=== PATIENT | female | born 1945 | race Caucasian/White ===

== ENCOUNTER 2021-05-03 00:30 | Day surgery (SDC) | payer MEDICARE, SELFPAY ==
[2021-04-26 12:56] VITALS: BMI 33.7
[2021-05-03 09:12] VITALS: BP 146/80; PULSE 81; RESP 18; TEMP 36.3; O2SAT 98; BMI 34.3
[2021-05-03] MEDS: LACTATED RINGERS 1,000 ML 150 ML IV CONT (09:23)
--- NOTE | 2021-05-03 09:36 | WPDGICN ---
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 This appears most consistent with globus phenomenon. Recent ENT evaluation suggested she may have underlying acid reflux because of irritation in her throat. Agree with trial of omeprazole 20mg p.o. daily for several months. Alternatively she may benefit from a trial of Elavil 10-25 mg at bedtime for 1 month. Further recommendations will be given after endoscopy. GI Consult Note Consult date/time: 05/03/21 09:36 HPI: Padmini Gary is a 75 year old female Presents for EGD. Patient reports the sensation of a pill being stuck in her throat. She states this has been present since May of 2020. She denies any difficulty swallowing. She has a past history of heartburn intermittently. She recently saw an Ear Nose and Throat doctor in over the last 2-3 weeks been on omeprazole 20mg p.o. daily. This has made no change in this throat sensation. She is referred today for EGD. Previous colonoscopy 2018 was unremarkable for screening purposes. Family history is noncontributory. Review of Systems Review of Systems: All systems reviewed & are unremarkable except as noted in HPI and below PMFSH Social History Social History Living arrangements: with family Meds Home Medications and Allergies Home Medications Medication Instructions Recorded Confirmed Type ezetimibe 10 mg PO DAILY 04/26/21 04/26/21 History tamoxifen 200 mg PO DAILY 04/26/21 04/26/21 History Allergies Allergy/AdvReac Type Severity Reaction Status Date / Time No Known Allergies Allergy Verified 05/03/21 09:11 Vital Signs Vital Signs - 24 hr 05/03/21 09:12 Temperature 97.3 F L Pulse Rate 81 Respiratory Rate 18 Blood Pressure 146/80 H Pulse Oximetry 98 Exam Narrative: His feels patient to be alert. Vital signs stable. HEENT exam is unremarkable. Patient is anicteric. Lungs are clear to auscultation and percussion. Heart is without murmur or extra sounds. Abdominal exam bowel sounds present soft nontender with no hepatosplenomegaly.
--- NOTE | 2021-05-03 09:51 | WPDANESEPPF ---
Anes - Initial Pre Proc Eval Procedure: Operation Date: 05/03/21 10:30 Proposed Procedures p Esophagogastroduodenoscopy - Ruben Sorensen MD Date/Time: 05/03/21 09:51 Surgeon: Ruben Sorensen MD Pre Op Diagnosis: GERD Patient Data Age: 75 Gender: F Height: 1.6 m Weight: 88 kg Last Vital Signs Temp 97.3 F L 05/03/21 09:12 Pulse 81 05/03/21 09:12 Resp 18 05/03/21 09:12 BP 146/80 H 05/03/21 09:12 Pulse Ox 98 05/03/21 09:12 Allergies Allergy/AdvReac Type Severity Reaction Status Date / Time No Known Allergies Allergy Verified 05/03/21 09:11 Home Medications Medication Instructions Recorded Confirmed Type ezetimibe 10 mg PO DAILY 04/26/21 04/26/21 History tamoxifen 200 mg PO DAILY 04/26/21 04/26/21 History Patient hx anesthesia problems: none Family hx anesthesia problems: none Results Review: All pre-operative results and documents have been reviewed as part of the pre-operative evaluation. COUNTS INCLUDE 234 BEDS AT THE [facility] Past Medical History Medical History (Updated 05/03/21 @ 09:46 by Sarmad Babin MD) Hyperlipidemia Social History Social History Living arrangements: with family Anes - Eval Final PreProcedure Day of Procedure 05/03/21 09:51 Patient weight: obese Heart: regular rate and rhythm Lungs: clear to auscultation Airway: Mallampati scale class II Neurological: alert and oriented Last oral intake: >/= 8 hours ASA classification: III Emergent: no Anesthetic plan: proceed Anesthesia type and monitoring: general GIVS and standard monitoring Results Review: All pre-operative results and documents have been reviewed as part of the pre-operative evaluation. Informed Consent: The patient's anesthetic plan and its attendant risks and benefits were discussed with the patient/family/POA. Questions were solicited and answers provided to the satisfaction of the patient/family/POA.
[2021-05-03 10:27] VITALS: BP 112/56; PULSE 82; RESP 22; O2SAT 98
[2021-05-03 10:37] VITALS: BP 146/75; PULSE 67; RESP 15; O2SAT 98
[2021-05-03 10:47] VITALS: BP 144/78; PULSE 70; RESP 17; O2SAT 98
== END 2021-05-03 10:54 | disposition home or self-care (01) ==
PROVIDERS: Visit Provider Internal Medicine Gastroenterology
PROC: 0DJ08ZZ Inspection of Upper Intestinal Tract, Via Natural or Artificial Opening Endoscopic (ICD-10-PCS; CPT 43235; principal; 2021-05-03 10:30)
DX: R09.89 Other specified symptoms and signs involving the circulatory and respiratory systems (principal); Q39.4 Esophageal web; R07.0 Pain in throat; K44.9 Diaphragmatic hernia without obstruction or gangrene; K21.00 Gastro-esophageal reflux disease with esophagitis, without bleeding; E78.5 Hyperlipidemia, unspecified; E66.9 Obesity, unspecified; Z68.34 Body mass index [BMI] 34.0-34.9, adult
CPT/HCPCS: 43450; 43235; J2704; J7120

== ENCOUNTER 2022-09-18 00:43 | Day surgery (SDC) | payer MEDICARE, SELFPAY ==
[2022-09-06 12:56] VITALS: BMI 34.0
[2022-09-18 06:13] VITALS: BMI 35.2
[2022-09-18 06:25] VITALS: BP 150/73; PULSE 72; RESP 18; TEMP 36.3; O2SAT 98
[2022-09-18 06:34] LABS: Glucose Point of Care 135 mg/dl (65-105)
[2022-09-18] MEDS: LACTATED RINGERS 1,000 ML 150 ML IV CONT (06:38)
--- NOTE | 2022-09-18 07:25 | P.HP_ITS ---
History of Present Illness History of Present Illness Consent: Risks, benefits, and alternatives have been discussed and questions answered. Patient agrees to proceed with procedure. Chief complaint: neoplasm screening Narrative: Padmini Gary is a 77 year old female Presents for screening colonoscopy. Patient's current weight appetite and bowel movements are normal. Patient denies abdominal pain. She has had no bleeding. Family history Significant her father had colon cancer. Patient presents today for surveillance screening colonoscopy. Review of Systems Review of Systems: Review of systems noncontributory. [facility] Past Medical History Medical History (Updated 09/18/22 @ 07:26 by Ruben Sorensen MD) Hyperlipidemia Social History Social History Smoking status: Never smoker Substance use: never Substance use type: does not use Living arrangements: with family Spiritual care concerns: No Meds Home Medications and Allergies Home Medications Medication Instructions Recorded Confirmed Type ezetimibe 10 mg tablet 10 mg PO DAILY 04/26/21 09/06/22 History tamoxifen 20 mg tablet 200 mg PO DAILY 04/26/21 09/06/22 History metformin 500 mg tablet 500 mg PO DAILY 09/06/22 09/06/22 History omeprazole 40 mg capsule,delayed 40 mg PO DAILY 09/06/22 09/06/22 History release Allergies Allergy/AdvReac Type Severity Reaction Status Date / Time No Known Allergies Allergy Verified 09/06/22 12:50 Vital Signs Vital Signs - 24 hr 09/18/22 06:25 Temperature 97.3 F L Pulse Rate 72 Respiratory Rate 18 Blood Pressure 150/73 H Pulse Oximetry 98 Oxygen Delivery Room Air Exam Narrative: Physical exam reveals patient to be alert. Vital signs stable. HEENT exam is unremarkable. Patient is anicteric. Lungs are clear to auscultation and percussion. Heart is without murmur or extra sounds. Abdomen bowel sounds are present soft nontender with no organomegaly. Digital external rectal exam is normal. Assessment and Plan Assessment and plan (1) Encounter for screening colonoscopy: Code(s): Z12.11 - Encounter for screening for malignant neoplasm of colon Status: Acute Assessment and Plan: Patient presents today for screening colonoscopy family history is significant her father had colon cancer. Plan for surveillance colonoscopy at this time.
--- NOTE | 2022-09-18 07:27 | WPDANESEPPF ---
Anes - Initial Pre Proc Eval Procedure: Operation Date: 09/18/22 07:30 Proposed Procedures p Screening Colonoscopy - Ruben Sorensen MD Date/Time: 09/18/22 07:27 Surgeon: Ruben Sorensen MD Pre Op Diagnosis: neoplasm screening Patient Data Age: 77 Gender: F Height: 1.6 m Weight: 90.3 kg Last Vital Signs Temp 97.3 F L 09/18/22 06:25 Pulse 72 09/18/22 06:25 Resp 18 09/18/22 06:25 BP 150/73 H 09/18/22 06:25 Pulse Ox 98 09/18/22 06:25 O2 Del Method Room Air 09/18/22 06:25 Allergies Allergy/AdvReac Type Severity Reaction Status Date / Time No Known Allergies Allergy Verified 09/06/22 12:50 Home Medications Medication Instructions Recorded Confirmed Type ezetimibe 10 mg tablet 10 mg PO DAILY 04/26/21 09/06/22 History tamoxifen 20 mg tablet 200 mg PO DAILY 04/26/21 09/06/22 History metformin 500 mg tablet 500 mg PO DAILY 09/06/22 09/06/22 History omeprazole 40 mg capsule,delayed 40 mg PO DAILY 09/06/22 09/06/22 History release Laboratory Tests 09/18/22 06:31 POC Capillary Glucose 135 H mg/dl (65-105) Patient hx anesthesia problems: none Family hx anesthesia problems: none Results Review: All pre-operative results and documents have been reviewed as part of the pre-operative evaluation. [facility] Past Medical History Medical History (Updated 09/18/22 @ 07:26 by Ruben Sorensen MD) Hyperlipidemia Social History Social History Smoking status: Never smoker Substance use: never Substance use type: does not use Living arrangements: with family Spiritual care concerns: No Anes - Eval Final PreProcedure Day of Procedure 09/18/22 07:27 Patient weight: obese Heart: regular rate and rhythm Lungs: clear to auscultation Airway: Mallampati scale class II Neurological: alert and oriented Last oral intake: >/= 8 hours ASA classification: III Emergent: no Anesthetic plan: proceed Anesthesia type and monitoring: general GIVS and standard monitoring Results Review: All pre-operative results and documents have been reviewed as part of the pre-operative evaluation. Informed Consent: The patient's anesthetic plan and its attendant risks and benefits were discussed with the patient/family/POA. Questions were solicited and answers provided to the satisfaction of the patient/family/POA.
[2022-09-18 07:49] VITALS: BP 103/46; PULSE 78; RESP 20; O2SAT 97
[2022-09-18 07:59] VITALS: BP 111/53; PULSE 75; RESP 21; O2SAT 96
[2022-09-18 08:09] VITALS: BP 121/62; PULSE 71; RESP 15; O2SAT 95
== END 2022-09-18 08:17 | disposition home or self-care (01) ==
PROVIDERS: PCP Family Medicine; Visit Provider Internal Medicine Gastroenterology
PROC: 0DJD8ZZ Inspection of Lower Intestinal Tract, Via Natural or Artificial Opening Endoscopic (ICD-10-PCS; CPT 45378; principal; 2022-09-18 07:30)
DX: Z12.11 Encounter for screening for malignant neoplasm of colon (principal); K64.8 Other hemorrhoids; Z80.0 Family history of malignant neoplasm of digestive organs; E66.9 Obesity, unspecified; Z68.35 Body mass index [BMI] 35.0-35.9, adult; Z79.84 Long term (current) use of oral hypoglycemic drugs; Z79.810 Long term (current) use of selective estrogen receptor modulators (SERMs)
CPT/HCPCS: G0105; 82948; J2704; J7120